=== PATIENT | male | born 1995 | race Caucasian/White ===

== ENCOUNTER 2017-03-19 11:03 | Emergency (ER) | payer SELFPAY ==
[~2017-03-19] VITALS: Ht 170.2 cm; Wt 63.0 kg
[2017-03-19 11:06] VITALS: Ht 170.2 cm; Wt 63.0 kg
[2017-03-19] MEDS ORDERED: DICY10CA60 PO (11:21)
[2017-03-19] MEDS ORDERED: SIME180C36 PO (11:22)
--- NOTE | 2017-03-19 11:56 | ERD ---
ER Documentation Chief Complaint Date/Time DATE: 03/19/17 TIME: 11:50 Chief Complaint LLQ PAIN X ON/OFF SEVERAL MTHS, DENIES N/V/D HPI This is a 21-year-old male that presents to the ER for intermittent left lower quadrant abdominal discomfort that is been going on for the last year. Patient describes the discomfort as feeling bloated and as if there is a lot of pressure in the lower left quadrant of his abdomen. Discomfort is nonradiating , he has not tried anything for the pain. Patient denies any symptoms today. He denies any nausea vomiting or diarrhea. He denies any fevers or chills. He denies any constipation. Patient denies any urinary frequency or dysuria. He denies any penile discharge or testicular pain. Patient denies any chest pain or shortness of breath ROS 12 point review of systems was done, all negative except per HPI. Medications Home Meds Active Scripts Simethicone (Simethicone) 180 Mg Capsule, 180 MG PO Q12 for 3 Days, CAP Prov:VICENTE,ALBINO C 03/19/17 Dicyclomine Hcl* (Bentyl*) 10 Mg Capsule, 10 MG PO QID for 7 Days, CAP Prov:VICENTE,ALBINO C 03/19/17 Allergies Allergies: Coded Allergies: No Known Allergy (Unverified , 03/19/17) PMhx/Soc Medical and Surgical Hx: pt denies Medical Hx, pt denies Surgical Hx Hx Alcohol Use: Yes Hx Substance Use: No Hx Tobacco Use: Yes Smoking Status: Current some day smoker Physical Exam Vitals Vital Signs Date Time Temp Pulse Resp B/P Pulse Ox O2 Delivery O2 Flow Rate FiO2 03/19/17 11:06 98.1 61 20 135/63 98 Physical Exam GENERAL: The patient is well developed and appropriate for usual state of health , in no apparent distress. HEENT: Atraumatic. CHEST: Clear to auscultation bilaterally. There are no rales, wheezes or rhonchi. HEART: Regular rate and rhythm. No murmurs, clicks, rubs or gallops. ABDOMEN: Soft, nontender and nondistended. Good bowel sounds. No rebound or guarding. No gross peritonitis. No gross organomegaly or masses. No Molina sign or McBurney point tenderness. BACK: No midline or flank tenderness. NEURO: Alert and oriented. SKIN: There is no apparent rash or petechia. The skin is warm and dry. Procedures/MDM This is a 21-year-old male presents to the ER with left lower quadrant discomfort that has been going on over the last a year. Suspicion for acute abdomen such as appendicitis, diverticulitis, intra-abdominal abscess, AAA or AAA rupture, obstructed kidney stone, pyelonephritis, gallbladder disease, pancreatitis is low. Patient is extremely well-appearing does not have any pain today, and afebrile. I do not believe that further testing is necessary as patient does not have any symptoms today and he has been having these symptoms for a year now. Patient urgently needs to follow-up with her primary care doctor and see a GI specialist. Patient may be experiencing indigestion or gas. He will be sent home with Bentyl and simethicone for any pain. Patient is to follow-up with his primary care doctor within 1-2 days return to ER sooner if symptoms worsen. My medical decision making was shared with the patient understands and agrees with plan. Departure Diagnosis: Primary Impression: Abdominal pain Condition: Stable Patient Instructions: Abdominal Pain Additional Instructions: Call your primary care doctor TOMORROW for an appointment during the next 1-2 days.See the doctor sooner or return here if your condition worsens before your appointment time. ALBINO ZHANG Mar 19, 2017 11:56
== END 2017-03-19 11:35 | disposition home or self-care (01) ==
LOC: FTE 11:03
DX: R10.32 Left lower quadrant pain (principal); F17.210 Nicotine dependence, cigarettes, uncomplicated
CPT/HCPCS: 99283